=== PATIENT | male | born 1995 | race Caucasian/White ===

== ENCOUNTER 2020-05-05 14:17 | Emergency (ER) | payer OTHER, SELFPAY ==
[2020-05-05 14:36] VITALS: BP 124/70; BP 127/88; PULSE 100; PULSE 125; RESP 22; TEMP 36.7; O2SAT 100; O2SAT 98
--- NOTE | 2020-05-05 14:48 | ED.ABDPAIN ---
HPI - Abdominal Pain General Chief Complaint: Urogenital-Male Stated Complaint: ABD PAIN,VOMITING,UNABLE TO URINATE Time Seen by Provider: 05/05/20 14:45 Source: patient Mode of arrival: ambulatory Limitations: no limitations History of Present Illness MD elicited complaint: abdominal pain Pertinent past history: other (IBS) Onset (ago): day(s) (2) Pain Consistency: constant Location: diffuse Severity: severe Quality: cramping Radiation: none Migration to: no migration Exacerbating factors: eating Relieving factors: movement Associated symptoms: nausea and vomiting Related Data Allergies Allergy/AdvReac Type Severity Reaction Status Date / Time Penicillins [PCN] Allergy Unknown UNKNOWN Unverified 03/06/20 16:31 Review of Systems Review of Systems Constitutional : No Weight loss, No Fever, No Chills ENT/Mouth : No sore throat, No Rhinorrhea Eyes: No Swelling, No Redness Cardiovascular : No Chest Pain, No SOB, NoEdema Respiratory : No Cough, No Sputum, No Wheezing Gastrointestinal : Positive Nausea, Positive Vomiting, no Diarrhea, positive abdominal Pain, No Hematochezia, No Melena Genitourinary : No Dysuria, No Urinary Frequency, No Hematuria, No Urgency Musculoskeletal : No joint pain, No Myalgias, No Joint Swelling Skin : No Skin Lesions, No rash Neuro : No Weakness, No Numbness, No Dizziness, No Headache Psych : No Anxiety/Panic, No Depression Heme/Lymph: No Bruising, No Lymphadenopathy Endocrine : No Polyuria, No Polydipsia All other systems reviewed and are negative. Physical Exam Vital Signs: Vital Signs: Last Vital Signs Temp 98.1 F 05/05/20 14:36 Pulse 125 H 05/05/20 14:36 Resp 22 H 05/05/20 14:36 BP 127/88 05/05/20 14:36 Pulse Ox 100 05/05/20 14:36 Body Mass Index 0.0 Appearance: Alert. Oriented X3. No acute distress. Anxious, walking around the hallways Eyes: Pupils equal, round and reactive to light. ENT: Pharynx normal. Neck: Normal inspection. Neck supple. CVS: Normal heart rate and rhythm. Pulses normal. Respiratory: No respiratory distress. Breath sounds normal. Abdomen: Soft and diffuse ttp no rebound or guarding Skin: Skin warm and dry. Normal skin color. Normal skin turgor. Extremities: No lower extremity edema. No calf ttp Neuro: Oriented X 3. No motor deficit. No sensory deficit. Course Course Course Narrative: patient eloped from the ED MDM - Abdominal Pain MDM Narrative Medical decision making narrative: 24 yo male with a hx of IBS, anxiety, vomiting - here with abdominal pain and vomiting, labs, IVF and anti emetics ordered Discharge Plan Discharge Clinical Impression: Abdominal pain, Vomiting Patient Disposition: Elopement Discharge Date/Time: 05/05/20 14:59 [facility] Past Medical History Attestation statement: The following information was validated with the patient. Medical History (Updated 05/05/20 @ 15:17 by Latanya Vyas DO) Anxiety IBS (irritable bowel syndrome) Vomiting Surgical History (Updated 05/05/20 @ 15:15 by Latanya Vyas DO) History of appendectomy Social History Social History Alcohol intake: unknown Smoking Status: Current some day smoker Use of substances other than those prescribed or required for medical reasons: Yes Substance Use Type: Marijuana Substance Use Frequency: Chronic Longstanding Last Used Substance: Unknown Advance Directives: No Advance Directives Information Provided: Yes
--- NOTE | 2020-05-05 14:52 | PC.NURSE ---
pt refusing to sit on stretcher, refusing to give urine sample. Explained pt has orders for blood work and orders for medication, pt demanding to know what kind of pain meds he will be getting. explained meds to pt, pt states he does not want that, states he wants real pain meds and then states nevermind, I'm leaving . Pt eloped
== END 2020-05-05 14:59 | disposition left against medical advice (07) ==
LOC: HO.ED 14:48
PROVIDERS: Emergency Provider Emergency Medicine
DX: R10.9 Unspecified abdominal pain (principal); R11.10 Vomiting, unspecified; F17.200 Nicotine dependence, unspecified, uncomplicated; F12.90 Cannabis use, unspecified, uncomplicated; Z71.6 Tobacco abuse counseling
CPT/HCPCS: 96361; 96374; 96375; 99284

== ENCOUNTER 2020-09-12 20:31 | Emergency (ER) | payer OTHER, SELFPAY ==
[2020-09-12 20:39] VITALS: BP 136/63; PULSE 66; RESP 16; TEMP 37; O2SAT 98; BMI 22.0
== END 2020-09-13 00:51 | disposition left against medical advice (07) ==
PROVIDERS: Emergency Provider Emergency Medicine
DX: Z04.1 Encounter for examination and observation following transport accident (principal); M54.2 Cervicalgia
CPT/HCPCS: 99282

== ENCOUNTER 2020-09-13 11:16 | Emergency (ER) | payer OTHER, SELFPAY ==
[2020-09-13 11:44] VITALS: BP 121/70; PULSE 70; RESP 16; TEMP 36.7; O2SAT 96; BMI 22.0
[2020-09-13] MEDS: Ketorolac Tromethamine 30 MG/ML VIAL IM (13:13)
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
== END 2020-09-13 13:45 | disposition home or self-care (01) ==
PROVIDERS: Emergency Provider Emergency Medicine
DX: S29.9XXA Unspecified injury of thorax, initial encounter (principal); S19.9XXA Unspecified injury of neck, initial encounter; M54.2 Cervicalgia; F12.90 Cannabis use, unspecified, uncomplicated; V43.52XA Car driver injured in collision with other type car in traffic accident, initial encounter; Y93.9 Activity, unspecified; Y92.410 Unspecified street and highway as the place of occurrence of the external cause; Y99.9 Unspecified external cause status; Z79.899 Other long term (current) drug therapy; F17.200 Nicotine dependence, unspecified, uncomplicated; Z71.6 Tobacco abuse counseling
CPT/HCPCS: 96372; 99283; 99284; J1885

== ENCOUNTER 2021-06-24 09:27 | Outpatient (REF) | payer OTHER, SELFPAY ==
[2021-06-24 10:58] LABS: COVID-19 Test Positive (Negative)
== END 2021-06-24 09:28 | disposition home or self-care (01) ==
LOC: HO.LAB 09:27
PROVIDERS: Visit Provider Internal Medicine
DX: Z20.822 Contact with and (suspected) exposure to COVID-19 (principal)
CPT/HCPCS: 87635; C9803

== ENCOUNTER 2022-06-30 16:28 | Emergency (ER) | payer OTHER, SELFPAY ==
[2022-06-30 16:36] VITALS: BP 122/79; PULSE 68; RESP 18; TEMP 36.6; O2SAT 98; BMI 21.2
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
[2022-06-30] MEDS: Tetracaine HCl/PF 0.5% Oph Sol 4 ML DROPS 1 DROP EYE-LEFT (18:36)
[2022-06-30] MEDS: Fluorescein Sodium STRIP 1 STRIP EYE-LEFT (18:36)
[2022-06-30] MEDS: Erythromycin Base 0.5% Oph Oin 1 GM TUBE 1 CM EYE-LEFT (19:01)
== END 2022-06-30 19:04 | disposition home or self-care (01) ==
PROVIDERS: Emergency Provider Internal Medicine
DX: S05.02XA Injury of conjunctiva and corneal abrasion without foreign body, left eye, initial encounter (principal); T26.62XA Corrosion of cornea and conjunctival sac, left eye, initial encounter; Y93.9 Activity, unspecified; Y92.9 Unspecified place or not applicable; Y99.0 Civilian activity done for income or pay
CPT/HCPCS: 99283; 99284

== ENCOUNTER 2022-11-19 17:06 | Emergency (ER) | payer OTHER, SELFPAY | END 2022-11-19 18:49 | disposition left against medical advice (07) | PROVIDERS: Emergency Provider Emergency Medicine | DX: T14.8XXD Other injury of unspecified body region, subsequent encounter (principal); X58.XXXD Exposure to other specified factors, subsequent encounter ==

== ENCOUNTER 2022-11-20 11:53 | Emergency (ER) | payer OTHER, SELFPAY ==
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
[2022-11-20 12:09] VITALS: BP 134/76; PULSE 90; RESP 16; TEMP 36.8; O2SAT 99; BMI 25.8
--- NOTE | 2022-11-20 12:41 | PC.NURSE ---
pt placed in new posterior short leg splint, cms in tact, reviewesd worrysome signs and symptoms to return to dept, pt will follow up with orth for further efal and tx
== END 2022-11-20 12:45 | disposition home or self-care (01) ==
PROVIDERS: Emergency Provider Emergency Medicine
DX: S92.001A Unspecified fracture of right calcaneus, initial encounter for closed fracture (principal); V43.92XA Unspecified car occupant injured in collision with other type car in traffic accident, initial encounter; Y93.9 Activity, unspecified; Y92.410 Unspecified street and highway as the place of occurrence of the external cause; Y99.9 Unspecified external cause status
CPT/HCPCS: 29515; 99282; 99283

== ENCOUNTER 2023-12-06 09:14 | Inpatient (IN) | payer OTHER, SELFPAY ==
--- NOTE | ~2023-12-06 | XR_ITS ---
EXAMINATION: XR CHEST CLINICAL INFORMATION: n/v, rule out air COMPARISON: Chest radiograph 03/19/2018 TECHNIQUE: PA view of the chest was obtained. FINDINGS: The lungs are well expanded. No focal consolidation, effusion, edema, or pneumothorax. The cardiomediastinal silhouette is within normal limits for technique and unchanged. No acute osseous abnormality. XR/XR chest 1V IMPRESSION: No acute pulmonary disease. No significant interval change compared to 03/19/2018.
--- NOTE | ~2023-12-06 | CT_ITS ---
EXAMINATION: CT ABDOMEN AND PELVIS WITHOUT IV CONTRAST CLINICAL INFORMATION: Nausea, vomiting, abdominal pain. COMPARISON: 11/29/2019 TECHNIQUE: Multidetector volumetric imaging was performed from the superior aspect of the liver through the pubic symphysis. Oral contrast was given. No intravenous contrast. Sagittal and coronal reformatted images were obtained on the technologist's workstation. This CT examination was performed using dose optimization techniques as appropriate, variously including the following: *Automated exposure control *Adjustment of mA and/or kV according to patient size (this includes techniques or standardized protocols for targeted exams where dose is matched to indication/reason for exam; i.e. extremities or head) *Use of iterative reconstruction technique DLP: 421 mGy-cm FINDINGS: LUNG BASES: Normal. No pulmonary consolidation or pleural effusion. HEPATOBILIARY: Liver has normal size, shape, and attenuation. No evidence of steatosis or mass. Gallbladder has a normal appearance. No dilated bile ducts. PANCREAS: No edema, pancreatic ductal dilatation or mass. SPLEEN: Normal. ADRENAL GLANDS: Normal. KIDNEYS AND URETERS: Kidneys have normal size and cortical thickness. No perinephric edema, urolithiasis or hydroureteronephrosis. BLADDER: Empty and grossly normal. BOWEL AND PERITONEUM: Stomach and small bowel are unremarkable. No dilated loops. Status post appendectomy. No overt colonic wall thickening or mesenteric fat stranding. No free fluid or pneumoperitoneum. ABDOMINAL WALL: Unremarkable. VASCULATURE: Unremarkable. LYMPH NODES: No pathologic sized lymph nodes in the abdomen or pelvis. No inguinal lymphadenopathy. PELVIC VISCERA: Prostate gland is unremarkable. No pelvic free fluid. MUSCULOSKELETAL: No acute or suspicious osseous abnormality. There appears to be a 1 cm epidermal inclusion cyst in subcutaneous tissue of the right lower back. CT/CT abdomen pelvis wo IV con IMPRESSION: No acute imaging abnormalities in the abdomen or pelvis. No evidence of enteritis, colitis or bowel obstruction. No abdominal free fluid or free air.
--- NOTE | ~2023-12-06 | XR_ITS ---
EXAMINATION: XR ABDOMEN COMPLETE CLINICAL INDICATION: Evaluate bowel obstruction COMPARISON: Abdomen CT from 11/29/2019 TECHNIQUE: 2 views of the abdomen. FINDINGS: Lung bases are normal. Bowel gas pattern is normal. Mild to moderate amount of fecal material is present in the colon. No fecal impaction within the rectum. No radiographic evidence of urinary tract calculi. Surgical clips are seen in the right lower quadrant and left lateral abdomen. Skeletal structures are unremarkable. XR/XR abdomen min 2V IMPRESSION: No acute abnormalities within the abdomen. No evidence of bowel obstruction.
[2023-12-06 09:18] VITALS: BP 120/70; PULSE 110; O2SAT 98
[2023-12-06 09:24] VITALS: BP 128/72; PULSE 94; RESP 14; TEMP 36.6; O2SAT 98; BMI 26.2
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
--- OUTSIDE RECORDS SUMMARY | 2023-12-06 09:57 | XMS_ITS | Continuity of Care Document ---
Author Organization [facility] replaced by [facility] Address [address] [place] [address] ve [address] [place] [address]- Care Team Providers Care Lodging House Keeper Name Role Phone Cross Elly MARTINEZ Primary Care Physician Unavaila ble Encounter [facility] Date(s): 11/24/22 - 12/24/[address] [place] [address]- Attending Physician: Admtr, Ar8 Admitting Physician: Admtr, Ar8 Referring Physician: Admtr, Ar8 Allergies, Adverse Reactions, Alerts Substance Reaction Severity Status penicillin Active penicillins Active Immunizations Given and Recorded Vaccine Date Status Refusal Reason tetanus/diphtheria/pertussis, acel(Tdap) 11/14/19 Recorded influenza virus vaccine, inactivated 08/06/17 Claudio rded influenza virus vaccine, inactivated 05/21/16 Claudio rded Meningococcal Conjugate Vaccine 05/21/16 Recorded Medications albuterol-ipratropium 3 mg-0.5 mg/3 ml inhalation solution 3 mL, BAND Nebulizer, 4 times a day, # 168 mL, 0 Refills, Maintenance, 11/12/22 15:05:00 EDT, Inhalation Solution, [facility], Partial fill upon patient request if the prescription is for a schedule II opioid drug., 3 mL BAND Nebulizer 4... Start Date: 11/12/22 Stop Date: 11/26/22 Status: Ordered docusate sodium 100 mg oral capsule 100 mg, 1, capsule, By Mouth, 2 times a day, # 28 capsule, Refills 0, Tot. Refills 0, Maintenance, 11/12/22 15:05:00 EDT, Route to Pharmacy Electronically, [facility], Partial fill uponpatient request if the prescription is for a schedu... Start Date: 11/12/22 Stop Date: 11/26/22 Status: Ordered gabapentin 300 mg oral capsule 300 mg, 1, capsule, By Mouth, 3 times a day, # 42 capsule, Refills 0, Tot. Refills 0, Maintenance, 11/12/22 15:05:00 EDT, Route to Pharmacy Electronically, [facility], Partial fill uponpatient request if the prescription is for a schedu... Start Date: 11/12/22 Stop Date: 11/26/22 Status: Ordered NuLYTELY with Flavor Packs oral powder for reconstitution 240 mL, By Mouth, Every 10 minutes, # 4,000 mL, 0 Refills, Maintenance, 11/21/15 14:47:03, 240 mL By Mouth Every 10 minutes Start Date: 11/21/15 Status: Ordered omeprazole 20 mg oral delayed release tablet 1 tablet = 20 mg, By Mouth, Daily, 0 Refills, Maintenance, 11/21/15 14:17:21 Start Date: 11/21/15 Status: Ordered omeprazole 20 mg oral enteric coated capsule 1 capsule = 20 mg, By Mouth, Daily, # 30 capsule, 11 Refills, Maintenance, 11/21/15 14:45:55 Start Date: 11/21/15 Status: Ordered Problem List Condition Confirmation Course Effective Dates Status Health St [facility] Informant Passage of loose stools Confirmed Active Epigastric pain Confirmed Active Encounter for diagnostic colonoscopy due to change in bowel habits Confirmed Active Rib fractures Confirmed Active H/O nausea and vomiting Confirmed Active Social History Social History Type Response Smoking Status Current some day smo ker; Type: Cigarettes entered on: 10/21/16 Sex Patient Care team information Care Team Personnel Name: Toña Armendariz RN Position: NANCYS RN Member Role: Primary Care Nurse Name: Bear Seth RN Position: NANCYS RN Member Role: Primary Care Nurse Care Team Related Persons Name: SHWETHA LATIF Address: home [address] [place] [id number]
--- OUTSIDE RECORDS SUMMARY | 2023-12-06 09:57 | XMS_ITS | Continuity of Care Document ---
Author Organization [facility] Address [address] [place] [address] [address] [place] [address]- Care Team Providers Care Securities Vault Supervisor Name Role Phone Cross Elly MARTINEZ Primary Care Physician Unavaila ble Encounter [facility] Date(s): 11/19/22 - 12/19/[address] [place] [address]- Allergies, Adverse Reactions, Alerts Substance Reaction Severity [...] Refills, Maintenance, 11/12/22 15:05:00 EDT, Inhalation Solution, [facility], Partial fill upon patient request if the prescription is for a schedule II opioid drug., 3 mL BAND Nebulizer 4... Start Date: 11/12/22 Stop Date: 11/26/22 Status: Ordered docusate sodium 100 mg oral capsule 100 mg, 1, capsule, By Mouth, 2 times a day, # 28 capsule, Refills 0, Tot. Refills 0, Maintenance, 11/12/22 15:05:00 EDT, Route to Pharmacy Electronically, [facility], Partial fill uponpatient request if the prescription is for a schedu... Start Date: 11/12/22 Stop Date: 11/26/22 Status: Ordered gabapentin 300 mg oral capsule 300 mg, 1, capsule, By Mouth, 3 times a day, # 42 capsule, Refills 0, Tot. Refills 0, Maintenance, 11/12/22 15:05:00 EDT, Route to Pharmacy Electronically, [facility], Partial fill uponpatient request if [...] Care Nurse Care Team Related Persons Name: MIKE LATIFIE Address: home [address] [place] [id number]
--- OUTSIDE RECORDS SUMMARY | 2023-12-06 09:57 | XMS_ITS | Continuity of Care Document ---
Author Organization [facility] Address [address] [place] [address] Dr [address] [place] [address]- Care Team Providers Care Medical Superintendent Name Role Phone Cross Elly MARTINEZ Primary Care Physician Unavaila ble Encounter [facility] Date[facility]s): 11/19/22 - 12/24/[address] [place] [address]- Attending Physician: Jennie Jaimes MD Referring Physician: Not on Staff, Referring MD [...] Refills, Maintenance, 11/12/22 15:05:00 EDT, Inhalation Solution, [facility], Partial fill upon patient request if the prescription is for a schedule II opioid drug., 3 mL BAND Nebulizer 4... Start Date: 11/12/22 Stop Date: 11/26/22 Status: Ordered docusate sodium 100 mg oral capsule 100 mg, 1, capsule, By Mouth, 2 times a day, # 28 capsule, Refills 0, Tot. Refills 0, Maintenance, 11/12/22 15:05:00 EDT, Route to Pharmacy Electronically, [facility], Partial fill uponpatient request if the prescription is for a schedu... Start Date: 11/12/22 Stop Date: 11/26/22 Status: Ordered gabapentin 300 mg oral capsule 300 mg, 1, capsule, By Mouth, 3 times a day, # 42 capsule, Refills 0, Tot. Refills 0, Maintenance, 11/12/22 15:05:00 EDT, Route to Pharmacy Electronically, [facility], Partial fill uponpatient request if [...] Team Personnel Name: Toña Armendariz RN Position: [facility] RN Member Role: Primary Care Nurse Name: Bear Seth RN Position: NANCYS RN Member Role: Primary Care Nurse Care Team Related Persons Name: SHWETHA LATIF Address: home [address] [place] [id number]
--- OUTSIDE RECORDS SUMMARY | 2023-12-06 09:57 | XMS_ITS | Continuity of Care Document ---
Author Organization [facility] formerly [facility] Address [address] [place] [address] [address] [place] [address]- Care Team Providers Care Production Proofreader Name Role Phone Cross Elly MARTINEZ Primary Care Physician Unavaila ble Encounter [facility] Date(s): 11/19/22 - 12/19/[address] [place] [address]- Allergies, Adverse Reactions, Alerts Substance Reaction Severity [...] Maintenance, 11/12/22 15:05:00 EDT, Inhalation Solution, [facility], Partial fill upon [...] 15:05:00 EDT, Route to Pharmacy Electronically, [facility], Partial fill uponpatient request if the prescription is for a schedu... Start Date: 11/12/22 Stop Date: 11/26/22 Status: Ordered gabapentin 300 mg oral capsule 300 mg, 1, capsule, By Mouth, 3 times a day, # 42 capsule, Refills 0, Tot. Refills 0, Maintenance, 11/12/22 15:05:00 EDT, Route to Pharmacy Electronically, [facility], Partial fill uponpatient [...] Care team information Care Team Personnel Name: Toañ Armendariz RN Position: NANCYS RN Member Role: Primary Care Nurse Name: Bear Seth RN Position: NANCYS RN Member Role: Primary Care Nurse Care Team Related Persons Name: MIKE LATIFIE Address: home [address] [place] [id number]
--- NOTE | 2023-12-06 10:01 | ED.NAVMDI ---
HPI - Nausea/Vomiting/Diarrhea General Chief complaint: Nausea/Vomiting/Diarrhea Stated complaint: NAUSEA,VOMITING X2 WKS PER EMS Time Seen by Provider: 12/06/23 09:44 Source: patient Mode of arrival: ambulatory Limitations: no limitations History of Present Illness HPI Narrative: Patient states he has not had a BM in 2 week and is not eating. MD elicited complaint: nausea and vomiting Related Data Previous Rx's ?Medication ?Instructions ?Recorded acetaminophen 500 mg tablet 500 mg PO Q6H PRN pain or fever 09/13/20 (Tylenol Extra Strength) #20 tabs cyclobenzaprine 5 mg tablet 5 mg PO Q8H PRN pain (scale score 09/13/20 7-10) 5 days #14 tabs lidocaine 5 % topical patch 1 patch topical DAILY PRN pain #30 09/13/20 (Lidoderm) ea naproxen 500 mg tablet 500 mg PO BID PRN pain 10 days #20 09/13/20 tabs erythromycin 5 mg/gram (0.5 %) eye 0.5 inch ophthalmic (eye) TID 2 06/30/22 ointment days #3.5 grams Allergies Allergy/AdvReac Type Severity Reaction Status Date / Time Penicillins [PCN] Allergy Unknown UNKNOWN Verified 12/06/23 09:25 Review of Systems Review of Systems: Yes all other systems are reviewed and are negative Neurologic: Denies Sensory deficit (Neuro) PMFSH Past Medical History Medical History Vomiting IBS (irritable bowel syndrome) Anxiety Surgical History History of appendectomy Social History Social History Alcohol intake: unknown Substance Use Type: Marijuana Advance Directives: No Advance Directives Information Provided: No Physical Exam Vital Signs: Vital Signs: Last Vital Signs Temp 97.7 F 12/06/23 12:31 Pulse 85 12/06/23 12:31 Resp 14 12/06/23 12:31 BP 160/84 H 12/06/23 12:31 Pulse Ox 97 12/06/23 12:31 O2 Del Method Room Air 12/06/23 12:31 BMI result Body Mass Index 26.2 Const: Other: male with flat affect Nutritional Appearance: average body habitus Orientation/consciousness: oriented to person and patient oriented x3 Limitations: no limitations HEENT: Head: Yes normal to inspection Ears: external ears normal General nose exam: Normal external nose present Mouth: Normal oral and palatal mucosa present and oropharynx normal Throat: Yes posterior oropharynx normal Eyes: General: appearance normal, both eyes and all related structures Neck: Other: supple Neck: Yes normal visual inspection Chest: Chest palpation & inspection: normal inspection of the chest Resp: Auscultation: clear to auscultation bilaterally Cardio: Jugular venous distension: no JVD Rate: regular rate Rhythm: regular rhythm Heart sounds: S1 normal heart sound present and S2 normal heart sound present GI: Inspection: Yes normal to inspection Palpation (GI): Soft to palpation, nontender and No hepatosplenomegaly present Auscultation: normal bowel sounds : General: Yes no CVA tenderness Back/Spine/Pelvis: Back: no CVA tenderness Skin: General skin exam: no rashes or lesions noted Neuro: General: oriented to person and patient oriented x3 Cranial nerves: Yes CN's II-XII intact bilaterally Motor exam (neuro): 5/5 motor strength present throughout Sensory Exam: No Sensory deficit (Neuro) Extrem: General: Yes normal to inspection Psych: Appearance: grossly normal Course Reevaluation(s) Reevaluation #1: patient found to be in acute renal failure with multiple metabolic abnormalities and dehydration. Will admit to the Hospitalist Time: 12:38 Reevaluation #2: I spent 40 minutes of critical care, with interventions, assessments, speaking to patient, consultants, and family. Time: 12:38 Medications Administered Generic Name Dose Route Start Last Admin Trade Name Freq PRN Reason Stop Dose Admin Sodium Chloride 500 mls @ 999 mls/hr 12/06/23 12:15 12/06/23 12:20 Ns IV 12/06/23 12:45 999 mls/hr .Q31M LALO Administration Magnesium Sulfate 2 gm in 50 mls @ 25 mls/hr 12/06/23 12:09 12/06/23 12:19 Magnesium Sulfate/H2o IV 12/06/23 14:08 25 mls/hr ONCE ONE Administration Discontinued Medications Generic Name Dose Route Start Last Admin Trade Name Freq PRN Reason Stop Dose Admin Sodium Chloride 500 mls @ 999 mls/hr 12/06/23 10:15 12/06/23 11:43 Ns IV 12/06/23 10:45 Infused .Q31M LALO Infusion Medical Decision Making Differential Diagnosis Differential Diagnoses: The differential diagnosis associated with the presentation includes (constipation, bowel obstruction, depression, anxiety, dehydration, renal failure) Admission/Observation Consideration of admission/observation: Escalation of care including admission/observation considered (upon arrival patient was considered for admission) Consult Healthcare Provider Management of the patient was discussed with: Hospitalist Lab Data 12/06/23 10:15 12/06/23 10:15 Labs: Lab Results 12/06/23 Range/Units 10:15 WBC 21.4 H (4.8-10.8) X10*3/uL RBC 6.11 H (4.60-5.80) X10*6/uL Hgb 19.2 H (14.0-18.0) g/dl Hct 51.3 (42.0-52.0) % MCV 84.0 (80.0-98.0) fL MCH 31.4 (27.0-33.0) pg MCHC 37.4 H (31.0-36.0) g/dl RDW 11.8 (11.0-16.0) % Plt Count 269 (160-400) X10*3/uL MPV 10.7 (9.4-12.4) fL Immature Gran % (Auto) 1.3 H (0.0-0.4) % Neut % (Auto) 78.7 H (45-73) % Lymph % (Auto) 8.9 L (20-40) % [place] % (Auto) 10.6 (2-11) % Eos % (Auto) 0.2 (0-4) % Baso % (Auto) 0.3 (0-2) % Lymph # (Auto) 1.9 (1.2-4.9) X10*3/uL [place] # (Auto) 2.3 H (0.1-1.2) X10*3/uL Eos # (Auto) 0.1 (0.0-0.4) X10*3/uL Baso # (Auto) 0.1 (0.0-0.2) X10*3/uL Abs Immat Gran (auto) 0.28 H (0.00-0.03) X10*3/uL Absolute Neuts (auto) 16.8 H (2.0-8.3) x10*3/uL Absolute Nucleated RBC 0.000 (0.0-0.012) X10*3/uL Nucleated RBC % (auto) 0.0 (0.0-0.2) /100WBC Smear Tech's Comments VERIFIED Sodium 127 L (135-145) mmol/L Potassium 2.8 L* (3.3-5.1) mmol/L Chloride 67 L (96-108) mmol/L Carbon Dioxide 41 H* (22-29) mmol/L Anion Gap 22 H (12-20) BUN 102 H (9-16) mg/dL Creatinine 3.96 H (0.5-1.4) mg/dL Estim Creat Clear Calc 26.1 Estimated GFR 18 Random Glucose 129 H (60-115) mg/dL Calcium 10.4 H (8.4-10.2) mg/dL Total Bilirubin 1.5 H (0.0-1.0) mg/dL AST 30 (5-37) U/L ALT 34 (0-40) U/L Alkaline Phosphatase 109 (39-117) U/L Total Protein 8.2 H (6.5-8.0) g/dL Albumin 4.8 (3.5-5.0) g/dL Lipase 46 (8-78) U/L Independent Historian Clinical information obtained from an independent historian. History obtained from or confirmed by: EMS Tests considered The following testing was considered but not selected: CT of abdomen considered but abdomen completely soft non focal Social Determinants Patient?s care significantly limited by Social Determinants of Health including: Low income Discharge Plan Discharge Clinical Impression: Dehydration, Acute renal failure, Electrolyte abnormality Patient Disposition: Admitted As Inpatient Print Language: Cymro
[2023-12-06 10:19] LABS: Basophils Absolute Auto 0.1 X10*3/uL (0.0-0.2); Basophils Percent Auto 0.3 % (0-2); Eosinophils Absolute Auto 0.1 X10*3/uL (0.0-0.4); Eosinophils Percent Auto 0.2 % (0-4); Hematocrit 51.3 % (42.0-52.0); Hemoglobin 19.2 g/dl (14.0-18.0); Imm Gran Abs Auto 0.28 X10*3/uL (0.00-0.03); Imm Gran Pct Auto 1.3 % (0.0-0.4); Lymphocytes Absolute Auto 1.9 X10*3/uL (1.2-4.9); Lymphocytes Percent Auto 8.9 % (20-40); MANUAL DIFF FLAG SCAN; Mean Corpuscular HGB Conc 37.4 g/dl (31.0-36.0); Mean Corpuscular Hemoglobin 31.4 pg (27.0-33.0); Mean Platelet Volume 10.7 fL (9.4-12.4); Monocytes Absolute Auto 2.3 X10*3/uL (0.1-1.2); Monocytes Percent Auto 10.6 % (2-11); Neutrophils Absolute Auto 16.8 x10*3/uL (2.0-8.3); Neutrophils Percent Auto 78.7 % (45-73); Platelet Count 269 X10*3/uL (160-400); Red Blood Count 6.11 X10*6/uL (4.60-5.80); Red Cell Distribution Width 11.8 % (11.0-16.0); SCAN SMEAR FLAG 1; White Blood Count 21.4 X10*3/uL (4.8-10.8)
[2023-12-06] MEDS: 0.9 % Sodium Chloride 500 ML 999 ML IV ×2 (10:19→12:20)
[2023-12-06 10:44] LABS: SLIDE REVIEW VERIFIED
[2023-12-06 11:19] LABS: Alanine Aminotransferase 34 U/L (0-40); Albumin Level 4.8 g/dL (3.5-5.0); Alkaline Phosphatase 109 U/L (39-117); Anion Gap 22 (12-20); Aspartate Amino Transferase 30 U/L (5-37); Bilirubin Total 1.5 mg/dL (0.0-1.0); Blood Urea Nitrogen 102 mg/dL (9-16); Calcium 10.4 mg/dL (8.4-10.2); Carbon Dioxide 41 mmol/L (22-29); Chloride 67 mmol/L (96-108); Creatinine Clr Calc Pharmacy 26.1; Estimated Glomerular Filt Rate 18; Glucose Random 129 mg/dL (60-115); Lipase 46 U/L (8-78); Potassium 2.8 mmol/L (3.3-5.1); Sodium 127 mmol/L (135-145); Total Protein 8.2 g/dL (6.5-8.0)
[2023-12-06] MEDS: Magnesium Sulfate/H2O 2 GM/50 ML PIGGYBACK IV (12:19)
[2023-12-06 12:31] VITALS: BP 160/84; PULSE 85; RESP 14; TEMP 36.5; O2SAT 97
[2023-12-06 13:00] LABS: Magnesium 3.1 mg/dL (1.6-2.6)
--- NOTE | 2023-12-06 13:09 | PM.IMHP ---
History of Present Illness Date of Service: 12/06/23 Chief Complaint: n/v 28M [facility] parviz adhikari (2018), mood disorder, presented with n/v. Patient reports 1-2 weeks of poor p.o. intake, nausea with vomiting 5-6 times per day, denies abdominal pain does report some chest soreness while retching. Has had no bowel movements. Denies fever chills. Reports this is similar to previous episodes. Was not going away on its own so he came to the ED. In ED noted to have significant lab abnormalities of acute kidney injury with a creatinine close to 4, leukocytosis of 21. Review of Systems Review of Systems: Yes all other systems are reviewed and are negative [facility] Medical History Vomiting IBS (irritable bowel syndrome) Anxiety Surgical History History of appendectomy Social History Alcohol intake: unknown Substance Use Type: Marijuana Advance Directives: No Advance Directives Information Provided: No Meds Allergies Allergy/AdvReac Type Severity Reaction Status Date / Time Penicillins [PCN] Allergy Unknown UNKNOWN Verified 12/06/23 09:25 Active Medications: Current Medications Magnesium Sulfate (Magnesium Sulfate/H2o) 2 gm in 50 mls @ 25 mls/hr IV ONCE ONE Stop: 12/06/23 14:08 Last Admin: 12/06/23 12:19 Dose: 25 mls/hr Potassium Chloride (Potassium Chloride/H20) 10 meq in 100 mls @ 100 mls/hr IV Q1H LALO Stop: 12/06/23 17:14 Sodium Chloride (Ns) 1,000 mls @ 80 mls/hr IVCONT .[id number] [facility] Home Medications ?Medication ?Instructions ?Recorded ?Confirmed ?Last Taken ?Type No Known Home Meds 12/06/23 12/06/23 Unknown History Physical Exam Vital Signs and Narrative: Vital Signs: Last Vital Signs Temp 97.7 F 12/06/23 12:31 Pulse 85 12/06/23 12:31 Resp 14 12/06/23 12:31 BP 160/84 H 12/06/23 12:31 Pulse Ox 97 12/06/23 12:31 O2 Del Method Room Air 12/06/23 12:31 BMI result Body Mass Index 26.2 General: AO X 3, no acute distress Resp: CTA bilateral, no accessory muscles used CVS: S1,S2,RRR GI: soft, non tender, non distended Neuro: motor grossly intact, alert Psych: appropriate affect, appropriate insight Results Labs 12/06/23 10:15 12/06/23 10:15 Labs: Laboratory Results - last 24 hr 12/06/23 10:15 MCV 84.0 MCH 31.4 MCHC 37.4 H RDW 11.8 Plt Count 269 MPV 10.7 Immature Gran % (Auto) 1.3 H Neut % (Auto) 78.7 H Lymph % (Auto) 8.9 L [place] % (Auto) 10.6 Eos % (Auto) 0.2 Baso % (Auto) 0.3 Lymph # (Auto) 1.9 [place] # (Auto) 2.3 H Eos # (Auto) 0.1 Baso # (Auto) 0.1 Abs Immat Gran (auto) 0.28 H Absolute Neuts (auto) 16.8 H Absolute Nucleated RBC 0.000 Nucleated RBC % (auto) 0.0 Smear Tech's Comments VERIFIED Anion Gap 22 H Estim Creat Clear Calc 26.1 Estimated GFR 18 Random Glucose 129 H Calcium 10.4 H Magnesium 3.1 H Total Bilirubin 1.5 H AST 30 ALT 34 Alkaline Phosphatase 109 Total Protein 8.2 H Albumin 4.8 Lipase 46 Imaging Radiologist's Impressions: Impressions Abdomen X-Ray 12/06/23 11:14 IMPRESSION: No acute abnormalities within the abdomen. No evidence of bowel obstruction. Assessment and Plan (1) Acute renal failure: Status: Acute Plan 28M [facility] parviz adhikari (2018), mood disorder, presented with n/v found to have rj, multiple labs abnormalities Acute kidney injury, leukocytosis, contraction alkalosis, hypochloremia, hypokalemia due to severe dehydration (not sepsis), due to suspected cannabis hyperemesis syndrome Normal saline, potassium supplement Check CT abdomen Monitor electrolytes and Bmp Avoid cannabis DVT prophylaxis with heparin subQ Full code Patient with severe electrolyte abnormalities and acute kidney injury requiring aggressive IV hydration and close monitoring, therefore expected require at least 2 midnights inpatient Quality Stroke Does the patient have a stroke diagnosis?: No VTE Prior VTE?: No VTE Risk Level:: Medical - moderate - high VTE Device Contraindication: Treatment Not Indicated VTE Drug Contraindication: N/A - Med Ordered
--- NOTE | 2023-12-06 13:12 | PHA.MEDREC ---
Pharmacy Consult ? Medication Reconciliation Pharmacy has completed the medication reconciliation.
[2023-12-06] MEDS: 0.9 % Sodium Chloride 1,000 ML 80 ML IVCONT (13:34)
[2023-12-06 13:57] LABS: Venous Blood Gas Refer to POC result
[2023-12-06 13:58] LABS: VBG Base Excess 25.4 mmol/L; VBG HCO3 50 mmol/L (22-26); VBG pCO2 52 mmHg; VBG pH 7.59 (7.32-7.43); VBG pO2 32 mmHg
[2023-12-06] MEDS: Potassium Chloride/H20 10 MEQ/100 ML PIGGYBACK 100 MEQ IV ×4 (14:06→17:24)
[2023-12-06] MEDS: Heparin Sodium,Porcine 5,000 UNIT/ML VIAL 5000 UNIT SUBCUT ×2 (14:09→20:55)
[2023-12-06 14:58] VITALS: BP 165/85; PULSE 78; RESP 18; TEMP 36.4; O2SAT 98
[2023-12-06] MEDS: Barium Sulfate Oral (Mocha) 450 ML ORAL.SUSP 900 ML PO (15:22)
[2023-12-06 16:00] VITALS: BP 157/85; PULSE 77; RESP 14; TEMP 36.6; O2SAT 99
[2023-12-06] MEDS: 0.9 % Sodium Chloride Flush 3 ML SYRINGE IVFLUSH (16:25)
[2023-12-06 16:41] VITALS: BMI 26.1
[2023-12-06 18:05] LABS: Appearance Urine Clear; Color Urine Yellow; Glucose Urine UA 100 mg/dL (Negative); Leukocyte Esterase Urine Trace (Negative); Nitrite Urine Negative (Negative); PH 7.5 (5.0-9.0); Specific Gravity - Urine 1.015 (1.005-1.025); UMIC TRIGGER UA YES; Urine Blood Small (1+) (Negative); Urine Ketones Negative (Negative); Urine Protein 30 (1+) mg/dL (Neg-Trace)
[2023-12-06 18:11] LABS: Chloride Urine Random < 20.0 mmol/L; Creatinine Urine 62.67 mg/dL; Potassium Urine Random 45.3 mmol/L
[2023-12-06] MEDS: Omeprazole 40 MG CAPSULE.DR PO (18:14)
[2023-12-06 18:16] LABS: Bacteria Urine None Seen (None Seen); Hyaline Casts Urine 0-2 /LPF (0-2); RBC Urine 0-2 /HPF (0-2); Squamous Epithelial Cell Urine 0-2 /HPF (0-2); WBC Urine 0-5 /HPF (0-5)
[2023-12-06 20:00] VITALS: BP 151/82; PULSE 79; RESP 20; TEMP 36.4; O2SAT 97
[2023-12-06] MEDS: Melatonin 3 MG TABLET 6 MG PO (21:01)
[2023-12-06] MEDS: Calcium Carbonate 750 MG TAB.CHEW PO (22:29)
[2023-12-07] VITALS (7 sets, daily range): BP systolic 124–167; BP diastolic 66–88; PULSE 68–92; RESP 16–20; TEMP 36.6–37.2; O2SAT 96–100
[2023-12-07] MEDS: 0.9 % Sodium Chloride 1,000 ML 80 ML IVCONT ×2 (01:59→13:45)
[2023-12-07] MEDS: Acetaminophen 325 MG TABLET 650 MG PO ×2 (02:42→22:05)
[2023-12-07] MEDS: Heparin Sodium,Porcine 5,000 UNIT/ML VIAL 5000 UNIT SUBCUT (05:40)
[2023-12-07 06:17] LABS: Hemoglobin 15.4 g/dl (14.0-18.0); Mean Corpuscular HGB Conc 36.7 g/dl (31.0-36.0); Mean Corpuscular Volume 84.5 fL (80.0-98.0); Mean Platelet Volume 10.4 fL (9.4-12.4); Platelet Count 241 X10*3/uL (160-400); Red Blood Count 4.97 X10*6/uL (4.60-5.80); Red Cell Distribution Width 11.7 % (11.0-16.0); White Blood Count 18.3 X10*3/uL (4.8-10.8)
[2023-12-07 06:33] LABS: Alanine Aminotransferase 26 U/L (0-40); Alkaline Phosphatase 88 U/L (39-117); Anion Gap 15 (12-20); Aspartate Amino Transferase 23 U/L (5-37); Bilirubin Direct 0.6 mg/dL (0.0-0.5); Bilirubin Total 1.4 mg/dL (0.0-1.0); Blood Urea Nitrogen 66 mg/dL (9-16); Calcium 9.4 mg/dL (8.4-10.2); Carbon Dioxide 36 mmol/L (22-29); Chloride 81 mmol/L (96-108); Creatinine Clr Calc Pharmacy 40.6; Estimated Glomerular Filt Rate 30; Glucose Fasting 98 mg/dL (60-99); Magnesium 2.5 mg/dL (1.6-2.6); Potassium 2.5 mmol/L (3.3-5.1); Sodium 129 mmol/L (135-145); Total Protein 6.4 g/dL (6.5-8.0)
[2023-12-07] MEDS: Potassium Chloride/H20 10 MEQ/100 ML PIGGYBACK 100 MEQ IV ×4 (08:20→16:34)
[2023-12-07] MEDS: Potassium Chloride Packet 20 MEQ PACKET 40 MEQ PO (08:20)
--- NOTE | 2023-12-07 09:27 | HO.PM.IMPN ---
Subjective Subjective Date of Service: 12/07/23 Interval History: no vomitting overnight, interested in solids, severe heartburn Physical Exam Vital Signs: Vital Signs: Last Vital Signs Temp 98.0 F 12/07/23 07:50 Pulse 87 12/07/23 07:50 Resp 20 12/07/23 07:50 BP 124/66 12/07/23 07:50 Pulse Ox 97 12/07/23 07:50 O2 Del Method Room Air 12/07/23 07:50 BMI result Body Mass Index 26.1 General: AO X 3, no acute distress Resp: CTA bilateral, no accessory muscles used CVS: S1,S2,RRR GI: soft, non tender, non distended Neuro: motor grossly intact, alert Psych: appropriate affect, appropriate insight Objective Data Active Medications Acetaminophen (Acetaminophen 325 Mg Tablet) 650 mg PO Q6H PRN PRN Reason: Pain, Mild (Pain Scale 1-3), fever or headache Last Admin: 12/07/23 02:42 Dose: 650 mg Documented By: ROHAN Heparin Sodium (Porcine) (Heparin Sodium,Porcine 5,000 Unit/Ml Vial) 5,000 unit SUBCUT Q8H [facility] Last Admin: 12/07/23 05:40 Dose: 5,000 unit Documented By: ROHAN Sodium Chloride (Ns) 1,000 mls @ 80 mls/hr IVCONT .[id number] [facility] Last Admin: 12/07/23 01:59 Dose: 80 mls/hr Documented By: ROHAN Potassium Chloride (Potassium Chloride/H20) 10 meq in 100 mls @ 100 mls/hr IV Q1H [facility] Stop: 12/07/23 10:44 Last Admin: 12/07/23 08:20 Dose: 100 mls/hr Documented By: TJ Melatonin (Melatonin 3 Mg Tablet) 6 mg PO BEDTIME PRN PRN Reason: Insomnia Last Admin: 12/06/23 21:01 Dose: 6 mg Documented By: ROHAN Pantoprazole Sodium (Pantoprazole Sodium 40 Mg/10 Ml Vial) 40 mg IVPUSH BID@0630,1630 [facility] Sodium Chloride (0.9 % Sodium Chloride Flush 3 Ml Syringe) 3 ml IVFLUSH QSHIFT [facility] Last Admin: 12/07/23 07:33 Dose: Not Given Documented By: HO.[email or web address] Non-Admin Reason: Previously Administered Sucralfate (Sucralfate Oral Suspension 1 Gm/10 Ml Oral.Susp) 1 gm PO QIDACHS [facility] Labs 12/07/23 05:56 12/07/23 05:56 Labs: Laboratory Results - last 24 hr 12/06/23 12/06/23 12/06/23 10:15 13:47 17:15 MCV 84.0 MCH 31.4 MCHC 37.4 H RDW 11.8 Plt Count 269 MPV 10.7 Immature Gran % (Auto) 1.3 H Neut % (Auto) 78.7 H Lymph % (Auto) 8.9 L [place] % (Auto) 10.6 Eos % (Auto) 0.2 Baso % (Auto) 0.3 Lymph # (Auto) 1.9 [place] # (Auto) 2.3 H Eos # (Auto) 0.1 Baso # (Auto) 0.1 Abs Immat Gran (auto) 0.28 H Absolute Neuts (auto) 16.8 H Absolute Nucleated RBC 0.000 Nucleated RBC % (auto) 0.0 Smear Tech's Comments VERIFIED VBG pH 7.59 H VBG pCO2 52 VBG pO2 32 VBG HCO3 50 H VBG O2 Saturation 74.0 VBG Base Excess 25.4 Anion Gap 22 H Estim Creat Clear Calc 26.1 Estimated GFR 18 Random Glucose 129 H Fasting Glucose Calcium 10.4 H Magnesium 3.1 H Total Bilirubin 1.5 H Direct Bilirubin AST 30 ALT 34 Alkaline Phosphatase 109 Total Protein 8.2 H Albumin 4.8 Lipase 46 Urine Color Yellow Urine Appearance Clear Urine pH 7.5 Ur Specific [place] 1.015 Urine Protein 30 (1+) H Urine Glucose (UA) 100 H Urine Ketones Negative Urine Blood Small (1+) H Urine Nitrite Negative Ur Leukocyte Esterase Trace H Urine RBC 0-2 Urine WBC 0-5 Ur Squamous Epith Cells 0-2 Urine Bacteria None Seen Hyaline Casts 0-2 Ur Random Sodium 22.0 Ur Random Potassium 45.3 Ur Random Chloride < 20.0 Urine Creatinine 62.67 12/07/23 05:56 MCV 84.5 MCH 31.0 MCHC 36.7 H RDW 11.7 Plt Count 241 MPV 10.4 Immature Gran % (Auto) Neut % (Auto) Lymph % (Auto) [place] % (Auto) Eos % (Auto) Baso % (Auto) Lymph # (Auto) [place] # (Auto) Eos # (Auto) Baso # (Auto) Abs Immat Gran (auto) Absolute Neuts (auto) Absolute Nucleated RBC 0.000 Nucleated RBC % (auto) 0.0 Smear Tech's Comments VBG pH VBG pCO2 VBG pO2 VBG HCO3 VBG O2 Saturation VBG Base Excess Anion Gap 15 Estim Creat Clear Calc 40.6 Estimated GFR 30 Random Glucose Fasting Glucose 98 Calcium 9.4 D Magnesium 2.5 Total Bilirubin 1.4 H Direct Bilirubin 0.6 H AST 23 ALT 26 Alkaline Phosphatase 88 Total Protein 6.4 L Albumin 4.0 Lipase Urine Color Urine Appearance Urine pH Ur Specific [place] Urine Protein Urine Glucose (UA) Urine Ketones Urine Blood Urine Nitrite Ur Leukocyte Esterase Urine RBC Urine WBC Ur Squamous Epith Cells Urine Bacteria Hyaline Casts Ur Random Sodium Ur Random Potassium Ur Random Chloride Urine Creatinine Assessment and Plan (1) Acute renal failure: Status: Acute Plan 28M PMH parviz adhikari (2018), mood disorder, presented with n/v found to have rj, multiple labs abnormalities Acute kidney injury, leukocytosis, contraction alkalosis, hypochloremia, hypokalemia due to severe dehydration (not sepsis), due to suspected cannabis hyperemesis syndrome vomiting improving, creatinine improving Normal saline, potassium supplement, will start solids, iv ppi, carafate CT abdomen unremarkable Monitor electrolytes and Bmp Avoid cannabis DVT prophylaxis with heparin subQ Full code reason for continued hospitalization:hypokalemia Quality Stroke Does the patient have a stroke diagnosis?: No VTE Prior VTE?: No VTE Risk Level:: Medical - moderate - high VTE Device Contraindication: Treatment Not Indicated VTE Drug Contraindication: N/A - Med Ordered
[2023-12-07] MEDS: Magnesium Hydrox/Alum Hydrox 30 ML ORAL.SUSP PO ×3 (10:00→23:56)
--- NOTE | 2023-12-07 10:19 | P.CDIM_ITS ---
PROVIDER RESPONSE TEXT: To clarify, the appropriate diagnosis supported by the clinical indicators: Hyponatremia QUERY TEXT: PHYSICIAN'S DOCUMENTATION REQUEST Date of Query: 12/07/2023 10:05 AM EDT Patient Name: Ramsey Beck Admit Date: 12/06/2023 Dear Frank Mendoza, A review of the medical record indicates additional documentation may be needed. Please review below and update the documentation accordingly. Clinical Indicators: LABS: sodium 127 L 129 L severe dehydration due to suspected cannabis hyperemesis syndrome multiple lab abnormalities Based on the above, is there a diagnosis that correlates with these lab findings: Hyponatremia Labs indicate a diagnosis of (please specify) Other (explain) Clinically unable to determine (explain) Thank you, Scarlet Bradley, CCS, CDIS Use of terms such as suspected, likely, concern for, or probable (associated with a specific diagnosi s that is being evaluated, monitored, or treated as if it exists) are acceptable and can be coded in the inpatient se tting, when documented at the time of discharge. Please use your independent medical judgment in providing your response. THIS QUERY IS PART OF THE PERMANENT MEDICAL RECORD
[2023-12-07] MEDS: Sucralfate Oral Suspension 1 GM/10 ML ORAL.SUSP PO ×3 (12:05→20:05)
--- NOTE | 2023-12-07 14:27 | MHC.CM.PN ---
Pt is independent, lives alone, he does not have a PCP, brochure provided. HCP form to be completed here and added to chart. Pt is able to get a transport home at [place]. DCP: home, self care, CM to follow for DC needs.
[2023-12-07] MEDS: Pantoprazole Sodium 40 MG/10 ML VIAL IVPUSH (16:34)
[2023-12-07] MEDS: 0.9 % Sodium Chloride Flush 3 ML SYRINGE IVFLUSH (20:07)
[2023-12-07] MEDS: Melatonin 3 MG TABLET 6 MG PO (22:06)
--- NOTE | 2023-12-07 23:33 | ECG_ITS ---
Test Reason : chest pain Blood Pressure : / mmHG Vent. Rate : 066 BPM Atrial Rate : 066 BPM P-R Int : 152 ms QRS Dur : 090 ms QT Int : 512 ms P-R-T Axes : 000 074 057 degrees QTc Int : 536 ms Normal sinus rhythm with sinus arrhythmia Prolonged QT Abnormal ECG When compared with ECG of 04-JAN-2017 09:53, QT has lengthened Referred By: Cheyenne Martinez Electronically Signed By:Marek Whitney
[2023-12-08 04:00] VITALS: BP 151/82; PULSE 78; RESP 18; TEMP 36.6; O2SAT 99
[2023-12-08 06:15] LABS: Hematocrit 40.6 % (42.0-52.0); Hemoglobin 14.8 g/dl (14.0-18.0); Mean Corpuscular HGB Conc 36.5 g/dl (31.0-36.0); Mean Corpuscular Hemoglobin 31.3 pg (27.0-33.0); Mean Corpuscular Volume 85.8 fL (80.0-98.0); Mean Platelet Volume 10.2 fL (9.4-12.4); Platelet Count 264 X10*3/uL (160-400); Red Blood Count 4.73 X10*6/uL (4.60-5.80); Red Cell Distribution Width 11.8 % (11.0-16.0); White Blood Count 17.8 X10*3/uL (4.8-10.8)
[2023-12-08 06:29] LABS: Anion Gap 14 (12-20); Blood Urea Nitrogen 40 mg/dL (9-16); Calcium 9.5 mg/dL (8.4-10.2); Carbon Dioxide 34 mmol/L (22-29); Chloride 88 mmol/L (96-108); Creatinine Clr Calc Pharmacy 55.1; Estimated Glomerular Filt Rate 43; Glucose Fasting 97 mg/dL (60-99); Potassium 2.6 mmol/L (3.3-5.1); Sodium 133 mmol/L (135-145)
[2023-12-08] MEDS: Sucralfate Oral Suspension 1 GM/10 ML ORAL.SUSP PO ×3 (07:58→17:31)
[2023-12-08] MEDS: Potassium Chloride/H20 10 MEQ/100 ML PIGGYBACK 100 MEQ IV ×4 (07:59→13:20)
[2023-12-08 08:00] VITALS: BP 152/76; PULSE 70; RESP 18; TEMP 36.9; O2SAT 99
[2023-12-08] MEDS: 0.9 % Sodium Chloride Flush 3 ML SYRINGE IVFLUSH ×2 (11:31→17:31)
[2023-12-08 11:32] VITALS: BP 170/96; PULSE 80; RESP 18; TEMP 37.6; O2SAT 94
[2023-12-08] MEDS: Famotidine 20 MG TABLET PO (11:32)
[2023-12-08] MEDS: Acetaminophen 325 MG TABLET 650 MG PO (11:33)
[2023-12-08] MEDS: Potassium Chloride ER 20 MEQ TAB.ER.PRT 40 MEQ PO ×2 (11:34→13:21)
[2023-12-08] MEDS: hydrOXYzine HCL 50 MG TABLET PO (13:20)
[2023-12-08] MEDS: Nicotine Polacrilex 2 MG GUM BUCCAL (13:20)
--- NOTE | 2023-12-08 13:30 | P.PNIM_ITS ---
Subjective Subjective Date of Service: 12/08/23 Interval History: seen and evaluated anxious, less nausea tolerating diet BP elevated on occasions Review of Systems Review of Systems: Yes all other systems are reviewed and are negative Physical Exam 2 Vital Signs: Vital Signs: Last Vital Signs Temp 99.6 F 12/08/23 11:32 Pulse 80 12/08/23 11:32 Resp 18 12/08/23 11:32 BP 170/96 H 12/08/23 11:32 Pulse Ox 94 12/08/23 11:32 O2 Del Method Room Air 12/08/23 11:32 BMI result Body Mass Index 26.1 Const: Other: Constitutional : Awake, interactive, mildly anxious Neck : Normal inspection, Supple Cardiovascular : RRR, no JVP, no lower extremity edema Respiratory : good bilateral air entry, no crackles, wheezes or rhonchi Gastrointestinal: soft, lax, Normal bowel sounds, Non tender Skin : Warm, Dry Neurological : Alert & oriented x3, No focal deficit Objective Data Active Medications Acetaminophen (Acetaminophen 325 Mg Tablet) 650 mg PO Q6H PRN PRN Reason: Pain, Mild (Pain Scale 1-3), fever or headache Last Admin: 12/08/23 11:33 Dose: 650 mg Documented By: MAINE Al Hydroxide/Mg Hydroxide (Magnesium Hydrox/Alum Hydrox 30 Ml Oral.Susp) 30 ml PO Q4H PRN PRN Reason: Heartburn Last Admin: 12/07/23 23:56 Dose: 30 ml Documented By: REHANA Famotidine (Famotidine 20 Mg Tablet) 20 mg PO BID [facility] Last Admin: 12/08/23 11:32 Dose: 20 mg Documented By: MAINE Heparin Sodium (Porcine) (Heparin Sodium,Porcine 5,000 Unit/Ml Vial) 5,000 unit SUBCUT Q8H [facility] Last Admin: 12/08/23 13:25 Dose: Not Given Documented By: MAINE Non-Admin Reason: Patient Refused Hydroxyzine HCl (Hydroxyzine Hcl 25 Mg Tablet) 25 mg PO Q6H PRN PRN Reason: anxiety/restlessness Melatonin (Melatonin 3 Mg Tablet) 6 mg PO BEDTIME PRN PRN Reason: Insomnia Last Admin: 12/07/23 22:06 Dose: 6 mg Documented By: REHANA Nicotine Polacrilex (Nicotine Polacrilex 2 Mg Gum) 2 mg BUCCAL Q2H PRN PRN Reason: Nicotine Cravings Last Admin: 12/08/23 13:20 Dose: 2 mg Documented By: MAINE Pantoprazole Sodium (Pantoprazole Sodium 40 Mg/10 Ml Vial) 40 mg IVPUSH BID@0630,1630 [facility] Last Admin: 12/08/23 05:25 Dose: Not Given Documented By: REHANA Non-Admin Reason: Patient Refused Comments: pt. refusing IV Sodium Chloride (0.9 % Sodium Chloride Flush 3 Ml Syringe) 3 ml IVFLUSH QSHIFT [facility] Last Admin: 12/08/23 11:31 Dose: 3 ml Documented By: MAINE Sucralfate (Sucralfate Oral Suspension 1 Gm/10 Ml Oral.Susp) 1 gm PO QIDACHS [facility] Last Admin: 12/08/23 11:33 Dose: 1 gm Documented By: MAINE Labs 12/08/23 05:34 12/08/23 05:34 Labs: Laboratory Results - last 24 hr 12/08/23 05:34 MCV 85.8 MCH 31.3 MCHC 36.5 H RDW 11.8 Plt Count 264 MPV 10.2 Absolute Nucleated RBC 0.000 Nucleated RBC % (auto) 0.0 Anion Gap 14 Estim Creat Clear Calc 55.1 Estimated GFR 43 Fasting Glucose 97 Calcium 9.5 Assessment and Plan (1) Electrolyte abnormality: Status: Acute (2) Acute renal failure: Status: Acute (3) Acute hyponatremia: Status: Acute (4) Acute hypokalemia: Status: Acute Plan 28M PM parviz adhikari (2018), mood disorder, presented with n/v found to have rj, multiple labs abnormalities Acute kidney injury with leukocytosis and hypokalemia due to severe dehydration likely from suspected cannabis hyperemesis syndrome creatinine improving CT abdomen unremarkable DC Normal saline Gve more potassium supplement iv ppi, Famotidine carafate Monitor electrolytes and Bmp Avoid cannabis Acute hyponatremia improving DVT prophylaxis with heparin subQ Full code reason for continued hospitalization:hypokalemia Quality Stroke Does the patient have a stroke diagnosis?: No VTE Prior VTE?: No VTE Risk Level:: Medical - moderate - high VTE Device Contraindication: Treatment Not Indicated VTE Drug Contraindication: N/A - Med Ordered
[2023-12-08 14:33] LABS: Anion Gap 14 (12-20); Blood Urea Nitrogen 33 mg/dL (9-16); Calcium 9.3 mg/dL (8.4-10.2); Carbon Dioxide 30 mmol/L (22-29); Chloride 92 mmol/L (96-108); Creatinine Clr Calc Pharmacy 62.4; Estimated Glomerular Filt Rate 50; Glucose Random 114 mg/dL (60-115); Potassium 3.7 mmol/L (3.3-5.1); Sodium 132 mmol/L (135-145)
[2023-12-08 16:06] VITALS: BP 148/82
[2023-12-08] MEDS: Lactated Ringers 1,000 ML 100 ML IVCONT (17:31)
[2023-12-08] MEDS: Pantoprazole Sodium 40 MG/10 ML VIAL IVPUSH (17:31)
--- NOTE | 2023-12-08 19:44 | PM.EVENT ---
Event Note Date of Service: 12/08/23 Event Note: Was informed by the nurse that patient is ready to leave. Patient states that he has been in the hospital for many days and just wants to go home. He is awake, alert and oriented to self, place, person and time. Patient has capacity and understands the risks of leaving against medical advice including worsening of kidney function, arrhythmias due to electrolyte abnormalities which may lead to cardiac arrest and/or . Patient states he will return to the ER in case he feels unwell. Patient to sign AMA form and leave against medical advice. Time Spent With Patient Time: Total time managing care of this patient today ____ minutes.
--- NOTE | 2023-12-08 19:49 | PC.NURSE ---
At 1910 patient squating in the doorway to his room. Patient stating he wants to leave against Medical Advice and go home. Reprt this to Dr. Martinez, covering MD and Nursing [employer] Teacher Lindsey Blevins. Pt. Alert and oriented x4. Independently ambulates with steady gait. Dr. Martinez in to speak with patient as pt. ready to leave on his own at 193. Patient's left Antecub. IV removed intact. Pt. ambulated off unit with his belongings.
--- NOTE | 2023-12-09 13:18 | P.DS_ITS ---
DS: Providers Provider Date of Service: 12/08/23 Date of admission: 12/06/23 13:07 Primary care physician: None Physician DS: Diagnosis Discharge Diagnosis (1) Electrolyte abnormality: Status: Acute (2) Acute renal failure: Status: Acute (3) Acute hyponatremia: Status: Acute (4) Acute hypokalemia: Status: Acute DS: Summary Hospital Course Hospital Course: Admission note HPI 28M PMH parviz adhikari (2018), mood disorder, presented with n/v. Patient reports 1-2 weeks of poor p.o. intake, nausea with vomiting 5-6 times per day, denies abdominal pain does report some chest soreness while retching. Has had no bowel movements. Denies fever chills. Reports this is similar to previous episodes. Was not going away on its own so he came to the ED. In ED noted to have significant lab abnormalities of acute kidney injury with a creatinine close to 4, leukocytosis of 21. Hospital course The patient was admitted for Acute kidney injury with leukocytosis, hyponatremia and hypokalemia due to severe dehydration likely from suspected cannabis hyperemesis syndrome that was treated with IV fluids and symptomatic measures with fair improvement in his creatinine as CT abdomen unremarkable. He received replacement for potassium with good response. Started on IV PPI, Famotidine for abdominal pain. on 12/07 evening he decided to Leave AMA. signed paperwork and refused to stay to finish treatment. Time Attestation Discharge Coordination Time (in mins): 37 Quality: Safe Use of Opioids Does Pt have an Active Cancer Diagnosis on the Problem List?: No Quality: Stroke Does the patient have a stroke diagnosis?: No Physical Exam Vital Signs: Vital Signs: Last Vital Signs Temp 99.6 F 12/08/23 11:32 Pulse 80 12/08/23 11:32 Resp 18 12/08/23 11:32 BP 148/82 H 12/08/23 16:06 Pulse Ox 94 12/08/23 11:32 O2 Del Method Room Air 12/08/23 11:32 BMI result Body Mass Index 26.1 Const: Other: AMA DS: Data Data Completed and Pending Labs on day of discharge: Laboratory Results - last 24 hr 12/08/23 14:12 Sodium 132 L Potassium 3.7 D Chloride 92 L Carbon Dioxide 30 H Anion Gap 14 BUN 33 H Creatinine 1.66 H Estim Creat Clear Calc 62.4 Estimated GFR 50 Random Glucose 114 Calcium 9.3 Discharge Plan Discharge Patient Disposition: Left Against Medical Advice Discharge Diagnosis: AMA Referrals: Physician,None [Primary Care Provider] - 1 Week Discharge Medications: No Action No Known Home Meds Discharge Orders: Discharge Order (Routine); Ordered 12/09/23 Ordered By: Maribel Maier Print Language: [place] Care Plan Goals: . Health Concerns: . Plan of Treatment: . Assessment: . Discharge Date/Time: 12/08/23 20:30
== END 2023-12-08 20:30 | disposition left against medical advice (07) | DRG 249 ==
LOC: HO.ED 12:41 → HO.EDOVER 13:16 → HO.IMC 14:40
PROVIDERS: Admitting Provider Internal Medicine; Emergency Provider Emergency Medicine; Visit Provider Student in an Organized Health Care Education/Training Program
DX: R11.2 Nausea with vomiting, unspecified (principal); N17.9 Acute kidney failure, unspecified; E87.1 Hypo-osmolality and hyponatremia; E86.0 Dehydration; E87.3 Alkalosis; E87.6 Hypokalemia; F12.90 Cannabis use, unspecified, uncomplicated; F17.210 Nicotine dependence, cigarettes, uncomplicated; Z71.6 Tobacco abuse counseling
CPT/HCPCS: 36415; 71045; 74019; 74176; 80048; 80053; 80076; 81001; 82436; 82570; 82803; 83690; 83735; 84133; 84300; 85025; 85027; 92950; 93005; 99285; C9113; J1644; J3475; J3480; J7120

== ENCOUNTER 2023-12-06 13:07 | Outpatient (BNV) | payer OTHER, SELFPAY | END 2023-12-07 23:33 | PROVIDERS: Admitting Provider Internal Medicine; Emergency Provider Emergency Medicine; Visit Provider Internal Medicine Cardiovascular Disease | DX: R94.31 Abnormal electrocardiogram [ECG] [EKG] (principal) | CPT/HCPCS: 93010 ==

== ENCOUNTER → 2023-12-06 13:07 | Outpatient (BNV) | payer OTHER, SELFPAY | PROVIDERS: Admitting Provider Internal Medicine; Emergency Provider Emergency Medicine; Visit Provider Internal Medicine | DX: N17.9 Acute kidney failure, unspecified (principal) | CPT/HCPCS: 99223; 99233; 99239 ==